=== PATIENT | female | born 1965 | race Caucasian/White ===

== ENCOUNTER → 2016-05-25 | Outpatient (CLI) | payer BC ==
--- NOTE | 2016-05-25 14:08 | US ---
EXAMINATION TYPE: US thyroid st tissue head/neck DATE OF EXAM: 05/25/2016 1:22 PM COMPARISON: NONE CLINICAL HISTORY: Pain in throat; patient describes a pressure rather than pain. GLAND SIZE: Right Lobe: 4.1 x 1.0 x 1.5 cm Overall Parenchyma: homogenous Left Lobe: 3.3 x 0.9 x 1.2 cm Overall Parenchyma: homogeneous Isthmus Thickness: 0.3 cm NODULES RIGHT: # of nodules measured on right: 0 LEFT: # of nodules measured on left: 0 ISTHMUS: # of nodules measured in the isthmus: 0 TECHNOLOGIST IMPRESSION: Bilateral neck scanned, no abnormal lymphadenopathy noted. No nodules iden tified. IMPRESSION: 1. Normal thyroid scan
== END | disposition home or self-care (01) ==
LOC: RADUSWWP 13:08
PROVIDERS: ATTEND Family Medicine
DX: R07.0 Pain in throat (principal)
CPT/HCPCS: 76536

== ENCOUNTER 2016-06-23 10:57 | Day surgery (SDC) | payer BC ==
[2016-06-22 13:15] VITALS: BMI 35.4
[~2016-06-23 10:57] MED LIST: LACTATED RINGERS 1,000 ML IV SCH
[2016-06-23 11:39] VITALS: TEMP 97.6
[2016-06-23] MEDS ORDERED: LIDOCAINE 1% 20 ML VIAL (10MG/ML) FOR IV START INTRADERMA ONE (11:52)
[2016-06-23] MEDS ORDERED: PROPOFOL 10 MG/ML 20 ML VIAL IV ONE (12:32)
[2016-06-23 13:00] VITALS: RESP 18
--- NOTE | 2016-06-23 13:00 | P.PCN ---
Date of Procedure: 06/23/16 Procedure(s) Performed: Procedure: Esophagogastroduodenoscopy and biopsy. Preoperative diagnosis: Throat pressure and reflux symptoms not responding to medical therapy. Postoperative diagnosis: Mild antral gastritis. Preparation and sedation: Was provided by anesthesia. Brief clinical history: The patient is a 51-year-old female who is referred for this evaluation to assess for possible esophagitis or complicated reflux disease. She has been complaining for the last couple months of pressure in her throat especially when she lays down. She has been tried on acid suppressive therapy without help. No alarm symptoms. Procedure: With the patient on her left lateral decubitus position and after informed consent and adequate sedation, I passed the Olympus-GIF 160 video upper endoscope through the cricopharyngeus down the esophagus. GE junction was around 36 cm from the incisors and there was no definite hiatal hernia. The esophagus did not show any obvious esophagitis or complicated reflux disease. The stomach was then insufflated with air and inspected in detail including the retroflex view in the cardia. There was some minimal mottling and erythema in the antrum but no ulcers or erosions. Pyloric channel, duodenal bulb, post bulbar area and descending duodenum showed minimal erythema. I obtained multiple biopsies from the duodenum, antrum and esophagus then the endoscope was withdrawn. The patient tolerated the procedure well. Plan: The findings all this exam where summarized it to the patient. We will await pathology results. She will follow-up with you as planned and further plans can be made based on her course and biopsy results. Would be happy to see in the office of her symptoms persist.
[2016-06-23 13:44] VITALS: BP 111/65; PULSE 77
== END 2016-06-23 13:43 | disposition home or self-care (01) ==
LOC: ORWHC2ENDO 10:57
DX: K21.0 Gastro-esophageal reflux disease with esophagitis (principal); K29.50 Unspecified chronic gastritis without bleeding; B96.81 Helicobacter pylori [H. pylori] as the cause of diseases classified elsewhere; E78.5 Hyperlipidemia, unspecified; E07.9 Disorder of thyroid, unspecified; Z79.899 Other long term (current) drug therapy; Z88.5 Allergy status to narcotic agent; Z91.041 Radiographic dye allergy status
CPT/HCPCS: 81025; 88305; 88342; 43239; J2704; 99153

== ENCOUNTER → 2016-07-17 | Outpatient (CLI) | payer BC ==
--- NOTE | 2016-07-20 09:12 | MM ---
Reason for exam: screening (asymptomatic). Last mammogram was performed 1 year and 1 month ago. History: Family history of breast cancer in maternal aunt at age 60. Took hormonal contraceptives for 1 year 8 months beginning at age 39. Physical Findings: A clinical breast exam by your physician is recommended on an annual basis and results should be correlated with mammographic findings. MG Screening Mammo w CAD Bilateral CC and MLO view(s) were taken. Prior study comparison: July 02, 2015, bilateral MG screening mammo w CAD. June 08, 2014, bilateral MG screening mammo w CAD. There are scattered fibroglandular densities. There is no discrete abnormality. No significant changes when compared with prior studies. ASSESSMENT: Negative, BI-RAD 1 RECOMMENDATION: Routine screening mammogram of both breasts in 1 year.
== END | disposition home or self-care (01) ==
LOC: RADMAMWWP 08:20
PROVIDERS: ATTEND Family Medicine
DX: Z12.31 Encounter for screening mammogram for malignant neoplasm of breast (principal)

== ENCOUNTER → 2016-11-05 | Outpatient (CLI) | payer BC ==
--- NOTE | 2016-11-05 08:03 | USB ---
Reason for exam: clinical finding. History: Family history of breast cancer in maternal aunt at age 60. Took hormonal contraceptives for 1 year 8 months beginning at age 39. Indicated problem(s): pain in the right breast. Physical Findings: Nurse Summary: bilateral nodularity, all soft, movable, right breast pain with exam, 9 o'clock (nurse ts). US Breast RT Right breast ultrasound includes all four quadrants, the retroareolar region and axilla. Finding demonstrates no cystic or solid lesion seen. These results were verbally communicated with the patient and result sheet given to the patient on 11/05/16. ASSESSMENT: Negative, BI-RAD 1 RECOMMENDATION: Return to routine screening mammogram schedule for the right breast. Manage patient on a clinical basis. Back on schedule for July 2017.
== END | disposition home or self-care (01) ==
LOC: RADUSWWP 06:55
PROVIDERS: ATTEND Family Medicine
DX: N64.4 Mastodynia (principal)

== ENCOUNTER 2017-09-23 12:59 | Day surgery (SDC) | payer BC ==
[2017-09-21 13:52] VITALS: BMI 38.9
[~2017-09-23 12:59] MED LIST changes: +LIDOCAINE 1% 20 ML VIAL (10MG/ML) FOR IV START INTRADERMA PRN
[2017-09-23 13:25] VITALS: RESP 16; TEMP 97.1
[2017-09-23] MEDS ORDERED: PROPOFOL 10 MG/ML 20 ML VIAL IV ONE (14:35)
[2017-09-23] MEDS ORDERED: LIDOCAINE 1% INJ 10MG/ML (20 ML MDV) ONE (14:35)
[2017-09-23 15:31] VITALS: BP 111/67; PULSE 63
--- NOTE | 2017-09-23 16:17 | P.PCN ---
Date of Procedure: 09/23/17 Procedure(s) Performed: Procedure: Colonoscopy and biopsy. Preoperative diagnosis: Screening for neoplasia. Postoperative diagnosis: Exam of the colon and terminal ileum within normal limits. Preparation: HalfLytely prep. Sedation: Was provided by anesthesia. Brief clinical history: The patient is a 52-year-old female who is scheduled for this evaluation for screening for neoplasia age being her risk factor. She has no abdominal pains, bleeding or anemia. She has been experiencing alternating bowel habits since her gallbladder surgery around 2007. No bleeding or extraintestinal manifestations of inflammatory bowel disease. Procedure: With the patient on her left lateral decubitus position and after informed consent and adequate sedation, the perianal area was inspected and it did not show any fissures or fistulas. There were no masses felt on digital rectal examination. The Olympus CFQ 160L video colonoscope was then inserted in the rectum in the usual fashion and advanced to the cecum. I intubated the ileocecal valve and examined the terminal ileum. Terminal ileum and colon appeared healthy with no edema, erythema, friability, ulceration, exudation or spontaneous bleeding. No polyps or tumors were seen or any obvious diverticular disease. I obtained biopsies from the terminal ileum and right colon then I retroflexed endoscope in the rectum before the endoscope was withdrawn. The patient tolerated the procedure well. Plan: The patient was reassured. She will follow-up with you as planned and I recommended repeat screening in 10 years.
== END 2017-09-23 16:19 | disposition home or self-care (01) ==
LOC: ORWHC2ENDO 12:59
DX: R19.4 Change in bowel habit (principal); Z98.890 Other specified postprocedural states; K21.9 Gastro-esophageal reflux disease without esophagitis; E07.9 Disorder of thyroid, unspecified; E78.5 Hyperlipidemia, unspecified; Z88.5 Allergy status to narcotic agent; Z91.041 Radiographic dye allergy status; Z79.890 Hormone replacement therapy; Z79.899 Other long term (current) drug therapy
CPT/HCPCS: 81025; 88305; 45380; J2001; J2704

== ENCOUNTER → 2017-10-28 | Outpatient (CLI) | payer BC ==
--- NOTE | 2017-11-01 08:09 | MM ---
Reason for exam: screening (asymptomatic). Last mammogram was performed 1 year and 3 months ago. History: Family history of breast cancer in maternal aunt at age 60. Took hormonal contraceptives for 1 year 8 months beginning at age 39. Physical Findings: A clinical breast exam by your physician is recommended on an annual basis and results should be correlated with mammographic findings. MG Screening Mammo w CAD Bilateral CC and MLO view(s) were taken. Prior study comparison: July 17, 2016, bilateral MG screening mammo w CAD. July 02, 2015, bilateral MG screening mammo w CAD. There are scattered fibroglandular densities. There is no discrete abnormality. ASSESSMENT: Negative, BI-RAD 1 RECOMMENDATION: Routine screening mammogram of both breasts in 1 year.
== END | disposition home or self-care (01) ==
LOC: RADMAMWWP 07:56
PROVIDERS: ATTEND Family Medicine
DX: Z12.31 Encounter for screening mammogram for malignant neoplasm of breast (principal)
CPT/HCPCS: 77067

== ENCOUNTER → 2018-12-06 | Outpatient (CLI) | payer BC ==
--- NOTE | 2018-12-08 12:02 | MM ---
Reason for exam: screening (asymptomatic). Last mammogram was performed 1 year and 1 month ago. History: Family history of breast cancer in maternal aunt at age 60. Took hormonal contraceptives for 1 year 8 months beginning at age 39. Physical Findings: A clinical breast exam by your physician is recommended on an annual basis and results should be correlated with mammographic findings. MG 3D Screening Mammo W/Cad Bilateral CC and MLO view(s) were taken. Prior study comparison: October 28, 2017, bilateral MG screening mammo w CAD. July 17, 2016, bilateral MG screening mammo w CAD. There are scattered fibroglandular densities. No significant changes when compared with prior studies. ASSESSMENT: Negative, BI-RAD 1 RECOMMENDATION: Routine screening mammogram of both breasts in 1 year.
== END | disposition home or self-care (01) ==
LOC: RADMAMWWP 07:08
PROVIDERS: ATTEND Family Medicine
DX: Z12.31 Encounter for screening mammogram for malignant neoplasm of breast (principal)
CPT/HCPCS: 77063; 77067

== ENCOUNTER → 2020-07-11 | Outpatient (CLI) | payer BC ==
--- NOTE | 2020-07-11 12:28 | MM ---
Reason for exam: screening (asymptomatic). Last mammogram was performed 1 year and 7 months ago. History: Family history of breast cancer in maternal aunt at age 60. Took hormonal contraceptives for 1 year 8 months beginning at age 39. Physical Findings: A clinical breast exam by your physician is recommended on an annual basis and results should be correlated with mammographic findings. MG 3D Screening Mammo W/Cad Bilateral CC and MLO view(s) were taken. Prior study comparison: December 06, 2018, bilateral MG 3d screening mammo w/cad. October 28, 2017, bilateral MG screening mammo w CAD. There are scattered fibroglandular densities. There is no discrete abnormality. ASSESSMENT: Negative, BI-RAD 1 RECOMMENDATION: Routine screening mammogram of both breasts in 1 year.
== END ==
LOC: RADMAMWWP 08:46
PROVIDERS: ATTEND Family Medicine
DX: Z12.31 Encounter for screening mammogram for malignant neoplasm of breast (principal); Z80.3 Family history of malignant neoplasm of breast
CPT/HCPCS: 77063; 77067

== ENCOUNTER → 2020-08-07 | Outpatient (CLI) | payer BC ==
[2020-08-07 14:49] LABS: Basophils # (A) 0.06 X 10*3/uL (0.00-0.10); Basophils % (A) 0.7 %; Eosinophils % (A) 1.2 %; HCT 44.5 % (37.2-46.3); HGB 14.4 g/dL (12.0-15.0); Lymphocytes # (A) 2.89 X 10*3/uL (0.90-5.00); Lymphocytes % (A) 33.7 %; MCH 31.4 pg (27.0-32.0); MCHC 32.4 g/dL (32.0-37.0); MCV 97.2 fL (80.0-97.0); Mean Platelet Volume 11.8 fL (9.5-12.2); Monocytes # (A) 0.59 X 10*3/uL (0.20-1.00); Monocytes % (A) 6.9 %; Neutrophils % (A) 57.1 %; Platelet Count 160 X 10*3/uL (140-440); RBC 4.58 X 10*6/uL (4.10-5.20); WBC 8.57 X 10*3/uL (4.50-10.00)
[2020-08-07 16:51] LABS: African American GFR (CKD) 84.6 (60.0-200.0); Albumin 4.6 g/dL (3.80-4.90); Albumin/Globulin Ratio 1.84 (1.60-3.17); Anion Gap 9.1 mmol/L (4.00-12.00); BUN/Creat Ratio 17.78 Ratio (12.00-20.00); Calcium 9.6 mg/dL (8.7-10.3); Carbon Dioxide 25.9 mmol/L (21.6-31.8); Chol/HDL Ratio 3.05; Globulin 2.5 g/dL (1.6-3.3); LDL Cholesterol,Calculated 109.6 mg/dL (0.0-131.0); Potassium 4.7 mmol/L (3.5-5.5); Total Bilirubin 0.5 mg/dL (0.2-1.2); Total Protein 7.1 g/dL (6.2-8.2); VLDL Calculation 15.4 mg/dL (5.00-40.00)
[2020-08-07 16:59] LABS: T4, Free (Free Thyroxine) 1.2 ng/dL (0.80-1.80)
[2020-08-07 18:44] LABS: Hemoglobin A1C 5.9 % (4.0-6.0)
== END | disposition home or self-care (01) ==
LOC: LABWHC1 10:17
PROVIDERS: ATTEND Nurse Practitioner Adult Health
DX: Z00.00 Encounter for general adult medical examination without abnormal findings (principal); E03.9 Hypothyroidism, unspecified; E78.5 Hyperlipidemia, unspecified
CPT/HCPCS: 36415; 80053; 80061; 83036; 84439; 84443; 85025

== ENCOUNTER → 2021-07-17 | Outpatient (CLI) | payer BC ==
[2021-07-17 15:10] LABS: Basophils # (A) 0.05 X 10*3/uL (0.00-0.10); Basophils % (A) 0.6 %; Eosinophils # (A) 0.11 X 10*3/uL (0.04-0.35); Eosinophils % (A) 1.4 %; HCT 42.6 % (37.2-46.3); HGB 13.7 g/dL (12.0-15.0); Immature Grans, Automated 0.5 %; Lymphocytes # (A) 2.72 X 10*3/uL (0.90-5.00); Lymphocytes % (A) 34.4 %; MCH 30.9 pg (27.0-32.0); MCHC 32.2 g/dL (32.0-37.0); MCV 96.2 fL (80.0-97.0); Mean Platelet Volume 10.2 fL (9.5-12.2); Monocytes # (A) 0.56 X 10*3/uL (0.20-1.00); Monocytes % (A) 7.1 %; NRBC Per 100 WBC 0 /100 WBCS (0.0-0.0); Neutrophils # (A) 4.42 X 10*3/uL (1.80-7.70); Platelet Count 265 X 10*3/uL (140-440); RBC 4.43 X 10*6/uL (4.10-5.20); RDW 13.2 % (11.5-14.5)
[2021-07-17 15:25] LABS: ALT 20 U/L (8-44); AST 21 U/L (13-35); African American GFR (CKD) 96.9 (60.0-200.0); Albumin 4.3 g/dL (3.8-4.9); Albumin/Globulin Ratio 1.48 (1.60-3.17); Alkaline Phosphatase 95 U/L (41-126); BUN/Creat Ratio 17.25 Ratio (12.00-20.00); Blood Urea Nitrogen 13.8 mg/dL (9.0-27.0); Calcium 9.1 mg/dL (8.7-10.3); Carbon Dioxide 23.4 mmol/L (20.0-27.5); Chloride 103 mmol/L (96-109); Globulin 2.9 g/dL (1.6-3.3); Glucose 94 mg/dL (70-110); Non-African American GFR(CKD) 83.6 (60.0-200.0); Potassium 4.2 mmol/L (3.5-5.5); Sodium 139 mmol/L (135-145); Total Protein 7.2 g/dL (6.2-8.2)
[2021-07-17 15:26] LABS: Chol/HDL Ratio 3.36 Ratio; Creatine Kinase 127 U/L (26-186); LDL Cholesterol,Calculated 110.7 mg/dL (0.0-131.0); VLDL Calculation 18.62 mg/dL (5.00-40.00)
== END | disposition home or self-care (01) ==
LOC: LABWHC1 08:55
PROVIDERS: ATTEND Family Medicine
DX: E03.9 Hypothyroidism, unspecified (principal); E78.5 Hyperlipidemia, unspecified
CPT/HCPCS: 36415; 80053; 80061; 82550; 84439; 84443; 85025

== ENCOUNTER → 2021-09-16 | Outpatient (CLI) | payer BC ==
--- NOTE | 2021-09-17 13:43 | MM ---
Reason for exam: screening (asymptomatic). Last mammogram was performed 1 year and 2 months ago. History: Family history of breast cancer in maternal aunt at age 60. Took hormonal contraceptives for 1 year 8 months beginning at age 39. Physical Findings: A clinical breast exam by your physician is recommended on an annual basis and results should be correlated with mammographic findings. MG 3D Screening Mammo W/Cad Bilateral CC and MLO view(s) were taken. Prior study comparison: July 11, 2020, bilateral MG 3d screening mammo w/cad. December 06, 2018, bilateral MG 3d screening mammo w/cad. There are scattered fibroglandular densities. There is no discrete abnormality. No significant changes when compared with prior studies. ASSESSMENT: Negative, BI-RAD 1 RECOMMENDATION: Routine screening mammogram of both breasts in 1 year.
== END | disposition home or self-care (01) ==
LOC: RADMAMWWP 14:37
PROVIDERS: ATTEND Family Medicine
DX: Z12.31 Encounter for screening mammogram for malignant neoplasm of breast (principal); Z80.3 Family history of malignant neoplasm of breast
CPT/HCPCS: 77063; 77067

== ENCOUNTER → 2022-04-15 | Outpatient (CLI) | payer BC ==
[2022-04-15 15:36] LABS: ALT 24 U/L (8-44); AST 25 U/L (13-35); African American GFR (CKD) 100.7 (60.0-200.0); Albumin 4.2 g/dL (3.8-4.9); Albumin/Globulin Ratio 1.42 (1.60-3.17); Alkaline Phosphatase 95 U/L (41-126); Blood Urea Nitrogen 11.7 mg/dL (9.0-27.0); Calcium 9.3 mg/dL (8.7-10.3); Carbon Dioxide 25.8 mmol/L (20.0-27.5); Chloride 105 mmol/L (96-109); Chol/HDL Ratio 4.35 Ratio; Globulin 2.9 g/dL (1.6-3.3); Glucose 90 mg/dL (70-110); LDL Cholesterol,Calculated 160.2 mg/dL (0.0-131.0); Non-African American GFR(CKD) 86.9 (60.0-200.0); Potassium 4.3 mmol/L (3.5-5.5); Sodium 141 mmol/L (135-145); Total Protein 7.1 g/dL (6.2-8.2); VLDL Calculation 18.54 mg/dL (5.00-40.00)
[2022-04-15 16:38] LABS: Basophils # (A) 0.04 X 10*3/uL (0.00-0.10); Basophils % (A) 0.5 %; Eosinophils # (A) 0.11 X 10*3/uL (0.04-0.35); Eosinophils % (A) 1.4 %; HCT 42.1 % (37.2-46.3); HGB 13.5 g/dL (12.0-15.0); Immature Grans, Automated 0.3 %; Lymphocytes # (A) 3.04 X 10*3/uL (0.90-5.00); Lymphocytes % (A) 39.9 %; MCH 31.4 pg (27.0-32.0); MCHC 32.1 g/dL (32.0-37.0); MCV 97.9 fL (80.0-97.0); Mean Platelet Volume 10.4 fL (9.5-12.2); Monocytes # (A) 0.55 X 10*3/uL (0.20-1.00); Monocytes % (A) 7.2 %; NRBC Per 100 WBC 0 /100 WBCS (0.0-0.0); Neutrophils # (A) 3.85 X 10*3/uL (1.80-7.70); Neutrophils % (A) 50.7 %; Platelet Count 242 X 10*3/uL (140-440); RDW 13.7 % (11.5-14.5); WBC 7.61 X 10*3/uL (4.50-10.00)
== END | disposition home or self-care (01) ==
LOC: LABWHC1 09:57
PROVIDERS: ATTEND Family Medicine
DX: Z00.00 Encounter for general adult medical examination without abnormal findings (principal); E03.9 Hypothyroidism, unspecified
CPT/HCPCS: 36415; 80053; 80061; 83036; 84439; 84443; 85025

== ENCOUNTER → 2022-07-30 | Outpatient (CLI) | payer BC ==
--- NOTE | 2022-07-30 14:37 | NM ---
EXAMINATION TYPE: NM bone 3 phase DATE OF EXAM: 07/30/2022 COMPARISON: Chest x-ray July 15, 2015 HISTORY: Pleural thickening. Left-sided rib and chest pain. Triple phase bone scintigraphy was performed following the injection of 20 mCi Tc 99m MDP. Immediate images and 5 hours post injection images acquired. Imaging is performed of the chest and abdomen FINDINGS: There is no significant abnormal accumulation of radiotracer to the left chest to suggest active infe ction. No suspicious increased radiotracer uptake is identified. Normal cardiac uptake and excretion is seen on initial images. IMPRESSION: As above.
== END | disposition home or self-care (01) ==
LOC: RADNMMAIN 07:30
PROVIDERS: ATTEND Family Medicine
DX: R07.81 Pleurodynia (principal)
CPT/HCPCS: 78315; A9503

== ENCOUNTER → 2022-09-22 | Outpatient (CLI) | payer BC ==
[2022-09-22 14:18] LABS: Basophils # (A) 0.04 X 10*3/uL (0.00-0.10); Basophils % (A) 0.5 %; Eosinophils # (A) 0.13 X 10*3/uL (0.04-0.35); Eosinophils % (A) 1.6 %; HCT 41.7 % (37.2-46.3); HGB 13.7 g/dL (12.0-15.0); Immature Grans, Automated 0.5 %; Lymphocytes # (A) 2.86 X 10*3/uL (0.90-5.00); Lymphocytes % (A) 35.3 %; MCH 31.7 pg (27.0-32.0); MCHC 32.9 g/dL (32.0-37.0); MCV 96.5 fL (80.0-97.0); Mean Platelet Volume 10.3 fL (9.5-12.2); Monocytes # (A) 0.61 X 10*3/uL (0.20-1.00); Monocytes % (A) 7.5 %; NRBC Per 100 WBC 0 /100 WBCS (0.0-0.0); Neutrophils # (A) 4.42 X 10*3/uL (1.80-7.70); Neutrophils % (A) 54.6 %; Platelet Count 244 X 10*3/uL (140-440); RBC 4.32 X 10*6/uL (4.10-5.20); RDW 13.5 % (11.5-14.5)
[2022-09-22 14:25] LABS: ALT 28 U/L (8-44); AST 22 U/L (13-35); African American GFR (CKD) 94.5 (60.0-200.0); Albumin 4.3 g/dL (3.8-4.9); Albumin/Globulin Ratio 1.62 (1.60-3.17); Alkaline Phosphatase 96 U/L (41-126); BUN/Creat Ratio 20.32 Ratio (12.00-20.00); Blood Urea Nitrogen 16.5 mg/dL (9.0-27.0); Calcium 9.5 mg/dL (8.7-10.3); Chloride 102 mmol/L (96-109); Chol/HDL Ratio 3.67 Ratio; Globulin 2.7 g/dL (1.6-3.3); Glucose 104 mg/dL (70-110); LDL Cholesterol,Calculated 125.2 mg/dL (0.0-131.0); Non-African American GFR(CKD) 81.5 (60.0-200.0); Potassium 4.2 mmol/L (3.5-5.5); Sodium 140 mmol/L (135-145)
--- NOTE | 2022-09-23 08:46 | MM ---
Reason for Exam: Screening (asymptomatic). Last screening mammogram was performed 12 month(s) ago. Patient History: Menarche at age 13. First Full-Term at age 22. Postmenopausal. Hormonal Contraceptives for 1 year, 8 months, from age 39 until age 40. Maternal aunt had breast cancer, age 60. Risk Values: Ariadna 5 year model risk: 1.2%. NCI Lifetime model risk: 8.1%. Prior Study Comparison: 12/06/2018 Bilateral Screening Mammogram, [facility]. 07/11/2020 Bilateral Screening Mammogram, [facility]. 09/16/2021 Bilateral Screening Mammogram, [facility]. Tissue Density: There are scattered fibroglandular densities. Findings: Analyzed By CAD. There is no suspicious group of microcalcifications or new suspicious mass in either breast. Overall Assessment: Negative, BI-RAD 1 Management: Screening Mammogram of both breasts in 1 year. A clinical breast exam by your physician is recommended on an annual basis and results should be correlated with mammographic findings. Electronically signed and approved by: Mike Lange D.O.
== END | disposition home or self-care (01) ==
LOC: RADMAMWWP 07:13
PROVIDERS: ATTEND Family Medicine
DX: Z12.31 Encounter for screening mammogram for malignant neoplasm of breast (principal); E03.9 Hypothyroidism, unspecified; E78.5 Hyperlipidemia, unspecified; Z78.0 Asymptomatic menopausal state; Z80.3 Family history of malignant neoplasm of breast
CPT/HCPCS: 77063; 77067; 80053; 80061; 83036; 84439; 84443; 84481; 85025

== ENCOUNTER → 2023-07-15 | Outpatient (CLI) | payer BC ==
--- NOTE | 2023-07-15 17:43 | CA ---
Stress Echo Report Debra Li Age: 58 Gender: F : 1965 Exam Date: 07/15/2023 10:38 Exam Location: [facility] Ht (in): 63 Wt (lb): 239 Ordering Physician: Dimitri Jasso MD Referring Physician: Dimitri Jasso MD Ophthalmic Aide: DIDIER SPANGLER Technologist Procedure CPT: Indication: R07.9 CHEST PAIN, UNSPECIFIED ICD-9 Codes: Rhythm: Patient History: CP, JAREK, PALP, NUMBNESS FACE/NECK, HTN, CHOL, FAMILY HX Cardiac Medications: PEROXYTINE, AZIDMIDE, LOSARTAN Medications in past 24 hours: Contrast: Stress Results Protocol: Mo Total dose(mL): Exercise Duration (min:sec): Max ST Depression (mm): Angina Score: Merida Score: METS: 4.6 Resting HR: 71 Resting BP: 121 / 72 Peak HR: 146 Peak BP: 190 / 63 Max Predicted HR: 164 89 % Max Predicted HR Target HR: 139 Double Product: [id number] Stress Summary: BP Response: Reason for Termination: Reached target heart rate or work-load Cardiac Symptoms: Short of Breath ECG Analysis Resting ECG: Normal sinus rhythm normal axis normal intervals with poor R-wave progression Stress ECG: Patient exercised on Mo protocol for 3 minutes achieving 85% of predicted maximal heart rate without chest pain or diagnostic ST segment depression Arrhythmia: Echo Analysis Resting Echo: Normal left ventricular size wall motion systolic function Peak Echo Analysis: Normal hyperdynamic response MEASUREMENTS (Male/Female) Normal Values CONCLUSIONS Very poor exercise tolerance Negative stress test by EKG criteria Negative stress echo Dr. Job Cruz MD (Electronically Signed) Final Date: 15 July 2023 17:42
== END | disposition home or self-care (01) ==
LOC: RADNMMAIN 09:58
PROVIDERS: ATTEND Family Medicine
DX: R07.9 Chest pain, unspecified (principal); R00.2 Palpitations; I10 Essential (primary) hypertension; E78.00 Pure hypercholesterolemia, unspecified
CPT/HCPCS: 93351

== ENCOUNTER → 2023-10-29 | Outpatient (CLI) | payer BC ==
--- NOTE | 2023-11-02 07:30 | MM ---
Reason for Exam: Screening (asymptomatic). Last mammogram was performed 1 year(s) and 1 month(s) ago. Patient History: Menarche at age 13. First Full-Term at age 22. Postmenopausal. Hormonal Contraceptives for 1 year, 8 months, from age 39 until age 40. Maternal aunt had breast cancer, age 60. Risk Values: Ariadna 5 year model risk: 1.2%. NCI Lifetime model risk: 7.9%. Prior Study Comparison: 07/11/2020 Bilateral Screening Mammogram, [facility]. 09/16/2021 Bilateral Screening Mammogram, [facility]. 09/22/2022 Bilateral MG 3D screening mammo w/cad, [facility]. Tissue Density: There are scattered areas of fibroglandular density. Findings: Analyzed By CAD. There is no suspicious group of microcalcifications or new suspicious mass in either breast. Overall Assessment: Negative, BI-RAD 1 Management: Screening Mammogram of both breasts in 1 year. . Patient should continue monthly self-breast exams. A clinical breast exam by your physician is recommended on an annual basis. This exam should not preclude additional follow-up of suspicious palpable abnormalities. Note on Ariadna scores and lifetime risk: 1. A Ariadna score greater than 3% is considered moderate risk. If this is the case, consider specialist referral to assess eligibility for a risk reducing agent. 2. If overall lifetime risk for the development of breast cancer is 20% or higher, the patient may qualify for future screening with alternating mammogram and breast MRI. Electronically signed and approved by: Fernandez Aldrich M.D. Radiologist
== END | disposition home or self-care (01) ==
LOC: RADMAMWWP 11:59
PROVIDERS: ATTEND Family Medicine
DX: Z12.31 Encounter for screening mammogram for malignant neoplasm of breast (principal); Z78.0 Asymptomatic menopausal state; Z80.3 Family history of malignant neoplasm of breast
CPT/HCPCS: 77063; 77067

== ENCOUNTER → 2024-07-06 | Outpatient (CLI) | payer BC ==
--- NOTE | 2024-07-06 08:32 | US ---
EXAMINATION TYPE: US kidneys/renal and bladder DATE OF EXAM: 07/06/2024 COMPARISON: Renal ultrasound 2014 CLINICAL INDICATION: Female, 59 years old with history of R31.9 HEMATURIA, UNSPECIFIED; TECHNIQUE: Grayscale imaging of the bilateral kidneys and urinary bladder: FINDINGS: EXAM MEASUREMENTS: Right Kidney: 10.7x5.3x6.0cm Left Kidney: 12.6x5.7x4.8cm slightly limited exam due to pt body habitus & overlying gas Right Kidney: No hydronephrosis or masses seen Left Kidney: No hydronephrosis or masses seen Bladder: wnl Bilateral Jets seen: Yes Suboptimal study. Distended bladder is present. Bilateral distal ureter jets are seen. IMPRESSION: Suboptimal study. No hydronephrosis seen bilaterally. Source of hematuria not identified. If symptoms persist further investigation with CT urogram would be warranted. [facility], , 07/06/2024 8:29 AM
--- NOTE | 2024-07-06 08:34 | US ---
EXAMINATION TYPE: US pelvic complete DATE OF EXAM: 07/06/2024 COMPARISON: NONE CLINICAL INDICATION: Female, 59 years old with history of R31.9 HEMATURIA, UNSPECIFIED; lower pelvic pain/discomfort TECHNIQUE: Transabdominal (TA). Transabdominal grayscale sonographic images of the pelvis were acquired. Transvaginal sonographic im ages were medically necessary to better assess the following anatomy: Doppler imaging: Color Doppler Images were obtained. FINDINGS: EXAM MEASUREMENTS: Uterus: 10.4x2.5x4.3cm Endometrial Stripe: 0.4cm Right Ovary: 1.7x2.0x0.9cm Left Ovary: 1.2x2.1x1.6cm slightly limited visualization of ovaries due to overlying bowel & pt body habitus, pt had bad experi ence with TV, Pt refused TV for today's study, best images obtained TA 1. Uterus: Anteverted wnl 2. Endometrium: wnl 3. Right Ovary: slightly obscured by overlying bowel, best images obtained 4. Left Ovary: slightly obscured by overlying bowel, best images obtained 5. Bilateral Adnexa: wnl 6. Posterior cul-de-sac: wnl IMPRESSION: Suboptimal study without suspicious finding on transabdominal pelvic ultrasound seen to a ccount for patient's symptoms. [facility], , 07/06/2024 8:32 AM
== END | disposition home or self-care (01) ==
LOC: RADUSWWP 07:35
PROVIDERS: ATTEND Family Medicine
DX: R31.9 Hematuria, unspecified (principal); R10.2 Pelvic and perineal pain
CPT/HCPCS: 76770; 76856

== ENCOUNTER → 2024-11-28 | Outpatient (CLI) | payer BC ==
--- NOTE | 2024-11-28 15:51 | MM ---
Reason for Exam: Screening (asymptomatic). Last mammogram was performed 1 year(s) and 1 month(s) ago. Patient History: Menarche at age 13. First Full-Term at age 22. Postmenopausal. Hormonal Contraceptives for 1 year, 8 months, from age 39 until age 40. Maternal aunt had breast cancer, age 60. Risk Values: Ariadna 5 year model risk: 1.3%. NCI Lifetime model risk: 7.7%. Prior Study Comparison: 09/16/2021 Bilateral Screening Mammogram, [facility]. 09/22/2022 Bilateral MG 3D screening mammo w/cad, [facility]. 10/29/2023 Bilateral MG 3D screening mammo w/cad, [facility]. Tissue Density: The breasts are almost entirely fatty. Findings: Analyzed By CAD. Right breast: There is no suspicious group of microcalcifications or new suspicious mass. Left breast: There is no suspicious group of microcalcifications or new suspicious mass. Overall Assessment: Negative, BI-RAD 1 Management: Screening Mammogram of both breasts in [address] [facility] will attempt to contact patient to return for supplemental views and ultrasound if indicated. Patient should continue monthly self-breast exams. A clinical breast exam by your physician is recommended on an annual basis. This exam should not preclude additional follow-up of suspicious palpable abnormalities. Note on Ariadna scores and lifetime risk: 1. A Ariadna score greater than 3% is considered moderate risk. If this is the case, consider specialist referral to assess eligibility for a risk reducing agent. 2. If overall lifetime risk for the development of breast cancer is 20% or higher, the patient may qualify for future screening with alternating mammogram and breast MRI. [facility], , 11/28/2024 3:49 PM. Electronically signed and approved by: Moisés Campos DO
== END | disposition home or self-care (01) ==
LOC: RADMAMWWP 14:02
PROVIDERS: ATTEND Family Medicine
DX: Z12.31 Encounter for screening mammogram for malignant neoplasm of breast (principal); R92.313 Mammographic fatty tissue density, bilateral breasts; Z80.3 Family history of malignant neoplasm of breast; Z78.0 Asymptomatic menopausal state; Z92.0 Personal history of contraception
CPT/HCPCS: 77063; 77067